=== PATIENT | female | born 1965 | race African-American/Black ===

== ENCOUNTER 2022-03-23 14:49 | Emergency (ER) | payer OTHER, BC ==
[2022-03-23 15:06] VITALS: TEMP 97.8; BMI 31.4
[2022-03-23 16:58] LABS: EOS % 2.7 % (0-4.5); HEMATOCRIT 44.1 % (32.4-45.2); HEMOGLOBIN 13.8 GM/dL (10.7-15.3); LYMPH % 39.1 % (8-40); MCH 26.8 pg (25.7-33.7); MCHC 31.4 g/dl (32.0-36.0); MEAN CELL VOLUME 85.4 fl (80-96); MEAN PLT VOLUME 9.7 fl (7.5-11.1); NEUT % 46.2 % (42.8-82.8); PLATELET COUNT 228 10^3/uL (134-434); RBC 5.16 M/mm3 (3.60-5.2); RDW 13.8 % (11.6-15.6); WHITE BLOOD COUNT 5.9 K/mm3 (4.0-10.0)
[2022-03-23 17:22] LABS: CALCIUM 10.4 mg/dL (8.5-10.1)
[2022-03-23 17:23] LABS: ALBUMIN 3.7 g/dl (3.4-5.0); BLOOD UREA NITROGEN 19.2 mg/dL (7-18)
[2022-03-23 17:26] LABS: CREATININE 0.9 mg/dL (0.55-1.3)
[2022-03-23 17:28] LABS: TOT PROT 7.5 g/dl (6.4-8.2)
[2022-03-23 17:29] LABS: BILIRUBIN,TOTAL 0.7 mg/dL (0.2-1)
[2022-03-23 17:48] VITALS: BP 161/93; PULSE 69; RESP 17
== END 2022-03-23 19:49 | disposition home or self-care (01) ==
LOC: JER 14:49
DX: R07.9 Chest pain, unspecified (principal)
CPT/HCPCS: 36415; 71045-TC-FY; 80053; 84484; 85025; 85379; 93005; 93010; 99285-25

== ENCOUNTER 2022-12-09 04:31 | Day surgery (SDC) | payer BC, OTHER ==
[2022-12-09 07:55] VITALS: BMI 31.2
[2022-12-09 09:29] VITALS: TEMP 97
[2022-12-09 10:12] VITALS: BP 158/72; PULSE 65; RESP 15
== END 2022-12-09 10:23 | disposition home or self-care (01) ==
LOC: JASU-ENDO 04:31
PROVIDERS: ATTEND Internal Medicine Gastroenterology
PROC: 0DJD8ZZ Inspection of Lower Intestinal Tract, Via Natural or Artificial Opening Endoscopic (ICD-10-PCS; principal; 2022-12-09 08:30)
DX: Z12.11 Encounter for screening for malignant neoplasm of colon (principal); K57.30 Diverticulosis of large intestine without perforation or abscess without bleeding